=== PATIENT | female | born 1950 | race Caucasian/White ===

== ENCOUNTER 2016-10-30 01:18 | Day surgery (SDC) | payer MEDICARE, OTHER ==
[~2016-10-30] VITALS: Ht 170.2 cm; Wt 93.0 kg
[~2016-10-30 01:18] MED LIST: CAR180CD PO; MAGN250T29 PO; MULT-1018 PO; RIVA20TA PO; VIT1TABL83 PO
[2016-10-30] MEDS ORDERED: Propofol 10,000 mCg/mL 20 mL Inj ONE (01:19)
[2016-10-30] MEDS ORDERED: Sodium Biphos-Phos 133 mL Enema RECTAL PRN (06:00)
[2016-10-30] MEDS ORDERED: Sodium Chloride LOK Flush 10 mL Syringe IV PRN (06:00)
[2016-10-30] MEDS ORDERED: fentaNYL-PF 50 mCg/mL 2 mL Inj IVPUSH PRN (06:00)
[2016-10-30] MEDS ORDERED: CHOL500051 PO (14:03)
[2016-10-30] MEDS: 0.9% Sodium Chloride 1,000 ML IV SCH ×2 (14:11→15:58)
[2016-10-30 14:13] VITALS: BP 137/75; PULSE 60; RESP 16; O2SAT 98
[2016-10-30 16:13] VITALS: BP 107/59; PULSE 63; RESP 16; O2SAT 95
--- NOTE | 2016-10-30 16:16 | PCM.HPANE ---
Patient Data Date of Service: October 30, 2016 ([id number]) Surgeon Admitting Provider: Attending Provider:Salinas Lorenzo MD Primary Care Physician:Dania Rivera MD Other Provider: Reason for Visit Rectal Bleeding Ht/WT & BMI Height (Feet): 5 Height (Inches): 7 Weight (Kilograms): 92.99 Body Mass Index 32.00 Allergies Coded Allergies: Sulfa (Sulfonamide Antibiotics) (Verified Allergy, Severe, HIVES, MOUTH SWELLS SHUT, 10/29/16) aspirin (Verified Allergy, Severe, Hives, 10/29/16) codeine (Verified Allergy, Severe, HIVES, SWELLING IN JOINTS AND LIPS, ) metronidazole (Verified Allergy, Severe, Rash, 10/29/16) lidocaine (Verified Allergy, Intermediate, SWELLING/ITCHING, 10/30/16) Past Anesthesia History Anesthesia History: Denies:: Abnormal Airway, Anesthesia Reactions, Difficult Intubation, Fam Anesthesia Reaction, Fam Malignant Hypertherm, Malignant Hyperthermia Diabetes History Hx Diabetes?: No MRSA MRSA: No Medications Blood Thinner: Xarelto Last Dose Blood Thinner: October 25, 2016 Reported Medications Cholecalciferol (Vitamin D3) (Vitamin D)5,000 Unit Capsule5,000 Unit PO 10/30/16 Rivaroxaban (Xarelto)20 Mg Fjpuxy47 Mg PO DAILY 10/29/16 Vit B Comp/C/FA/Iron/Vit E (Vitamin B Complex Tablet)1 Each Tablet1 Each PO DAILY 10/29/16 Multivitamin (Multi Vitamin Daily)1 Each Tablet1 Each PO DAILY 30 Days Ref 0 10/29/16 Magnesium Oxide (Magnesium)250 Mg Wkjztj193 Mg PO DAILY 10/29/16 Diltiazem-Expunged Drug, Do Not Renew! (Diltiazem CD-Expunged Drug, Do Not Renew !)180 Mg Veslmva719 Mg PO DAILY #30 CAP 24 HOUR DOSAGE FORM 05/18/12 Discontinued Reported Medications Ranitidine Hcl (Zantac)300 Mg Xlbsfy063 Mg PO BID 12/11/12 Dabigatran-Expunged Drug, Do Not Renew! (Pradaxa-Expunged Drug, Do Not Renew!) 150 Mg Febmdje482 Mg PO BID #60 CAP 05/17/12 Pantoprazole-Expunged Drug, Do Not Renew! (Protonix-Expunged Drug, Do Not Renew! )40 Mg Tablet.dr40 Mg PO 0730 #30 TAB 40 MG 05/17/12 Temazepam-Expunged Drug, Do Not Renew! 15 Mg Mhavzrh89 Mg PO 05/17/12 History History of ENT Problems?: No HEENT History: Denies:: Abnormal Airway Difficult Intubation Dysphagia Hearing Problem Denture Type: None Teeth Condition: Within Normal Limits Hx of Heart Problems?: Yes Cardiovascular History: Positive for:: Atrial Fibrillation Hypertension Irregular Heartbeat (afib) Denies:: AICD Cardiac Surgery Chest Pain Congestive Heart Failure Edema Heart Murmur Pacemaker Thrombophlebitis Valvular Heart Disease Hx of Respiratory Problem?: Yes Respiratory History: Positive for:: Dyspnea (From anxiety associated w/ CP) Denies:: Asthma COPD Chest Surgery Cough Emphysema Hemoptysis Pneumonia Tuberculosis Other Resp Pertinent History: SOB WITH EXCERSION Hx Neurologic Problems?: Yes Neurological History: Positive for:: Headaches (r/t medications) Denies:: Alzheimer's Disease CVA Dementia Dizziness Parkinson's Disease Seizures Hx of GI Problems?: Yes Hx of Problems?: Yes Genitourinary History: Positive for:: Urinary Tract Infection Denies:: HX of Hemodialysis Kidney Stones HX of Peritoneal Dialysis: No Female Hx: Positive for:: Problems with Breasts? (Benign breast lump in 1982) Denies:: Currently Endometriosis Pelvic Inflammatory Hx Musculoskeletal Problems?: No Musculoskeletal History: Denies:: Back Injury Fibromyalgia Joint Replacement Musculoskeletal Trauma Hx of Psycho/Social Problems?: No Psycho Social History: Denies:: Anxiety Bipolar Disorder Hx Depression Suicide Attempt Hx Surgeries?: Yes (TONSILLS,GALLBLADDER,MELANOMA) Hx Any Other Health Problems?: Yes Other History: Positive for:: Cancer (Malignant Melanoma x2) Hospitalization (Tonsilectomy , ) Denies:: Endocrine Disease Thyroid Disease History Blood Transfusions: Denies:: Blood Transfuse Reaction Blood Transfusions Hx Diabetes: No Hx Alcohol Use: Yes (1-2 DRINKS PER WEEK AT MOST)Hx Substance Use: NoHave You Smoked inLast 12 mo: No Stop/Bang Treated for Sleep Apnea?: Yes Do You Have a CPAP Machine?: Yes Risk Assessment Category Category 1A: Patient has history of documented sleep apnea, and HAS NOT received any narcotic, sedative or anesthesia administration during this stay. Category 1B: Patient has history of documented sleep apnea, and HAS received any narcotic , sedative or anesthesia administration during this stay Category 2: Patient has SUSPECTED Obstructive Sleep Apnea, and HAS received any narcotic , sedative or anesthesia administration during this stay. Category 3: Patient has SUSPECTED Obstructive Sleep Apnea and HAS NOT received narcotic, sedative or anesthesia administration during this stay. Category 4: Outpatient in Procedural Areas with known sleep apnea or who screen positive for High Risk via the STOP/BANG questionnaire. Exam Exam Vital Signs Vital Signs Date Time Temp Pulse Resp B/P Pulse Ox O2 Delivery O2 Flow Rate FiO2 10/30/16 16:13 63 16 107/59 95 Room Air 10/30/16 14:13 60 16 137/75 98 Room Air General Appearance: Mild Distress HEENT/AIRWAY: Other (unable to assess due to sedation) Lungs: Clear to Auscultation Heart: Exam Unremarkable Meds/Labs/Diagnostics Admission Meds Current Medications Sodium Chloride (Normal Saline) 1,000 ml @ 10 mls/hr Q24H IV Last administered on 10/30/16t 15:58; Start 10/30/16 at 06:00 Plan Impression Patient chart reviewed, patient interviewed and anesthestic plan with risks, benefits, and alternatives discussed, and informed consent obtained. ASA Physical Status: ASA2 Mod Systemic Disease Anesthetic Plan: MAC Bene/Risks/Altern/Consents: No (patient sedated) HP Complete Prior to Induction: No (rescue anesthetic) Baljeet Caldera MD October 30, 2016 16:15
--- NOTE | 2016-10-30 16:16 | PCM.ANEP1 ---
Post Anesthesia Phase 1 PACU Phase 1 Assessment Date of Service: October 30, 2016 ([id number]) Vital Signs Vital Signs Date Time Temp Pulse Resp B/P Pulse Ox O2 Delivery O2 Flow Rate FiO2 10/30/16 16:13 63 16 107/59 95 Room Air 10/30/16 14:13 60 16 137/75 98 Room Air Anesthetic Administered: MAC Level of Alertness: Sleepy, easy to arouse Pain: No Nausea or Vomiting: No Oxygen Delivery: Room Air Lungs: Clear to Auscultation Dermatome Level: Full Sensation Complications: No Baljeet Caldera MD October 30, 2016 16:16
[2016-10-30 16:21] VITALS: BP 115/73; PULSE 74; RESP 16; O2SAT 97
[2016-10-30 16:29] VITALS: BP 109/74; PULSE 64; RESP 16; O2SAT 97
--- NOTE | 2016-10-30 23:42 | ENDO ---
[address] [address] ENDOSCOPY PROCEDURE PATIENT: PALLAVI FLOWER : 1950 MR#: [id number] ADMIT: 10/30/2016 JOB ID: [id number] PRE-PROCEDURE DIAGNOSIS: Rectal bleeding. POSTPROCEDURE DIAGNOSES: 1. Rectal bleeding. 2. Minimal sigmoid diverticulosis. 3. Hemorrhoids. PROCEDURE: Colonoscopy. ENDOSCOPIST: Salinas Lorenzo MD MEDICATIONS: Versed 6 mg, Fentanyl 125 mcg, followed by propofol assisted anesthesia. INDICATIONS: The patient is a 66-year-old woman, who last underwent colonoscopy in 2012. 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 She was recommended to have repeat colonoscopy in five years. She then came back to [facility], because she had developed some blood on the toilet paper after bowel movements and had a known external hemorrhoid. She also had developed some cramping left upper quadrant and left lower quadrant pain, which was new. After discussion of risks and benefits, she agreed to proceed with colonoscopy. FINDINGS: No masses or mucosal abnormalities were identified. There were some minimal left-sided diverticula and mild to moderate internal hemorrhoids on retroflexion. DESCRIPTION OF PROCEDURE: Procedural sedation was achieved. After digital rectal exam, the PCF-H190 colonoscope was passed under visualization. In the transverse colon, she was markedly uncomfortable and had received 6 mg of Versed and 125 mcg of fentanyl. It was clear that we were not going to achieve complete intubation of the cecum without propofol assisted anesthesia, so Dr. Caldera assisted for the remainder of the procedure. See his dictated note for the sedation details. Once she was adequately sedated, the cecum was reached, and the terminal ileum was briefly intubated. Photo documentation was obtained from the terminal ileum, cecum, and ileocecal valve. The scope was then withdrawn and carefully retroflexed in the rectum. There were some minimal left-sided diverticula. There were some small to moderate internal hemorrhoids on retroflexion. No other mucosal abnormalities were identified. The scope was withdrawn and the procedure terminated. She tolerated the entire procedure well. RECOMMENDATIONS: For screening of the colon, next colonoscopy can be in five years. She can follow up with Dr. Lorenzo in surgery clinic to discuss hemorrhoid management as the likely source of her rectal bleeding given no other objective findings today. MALGORZATA
== END 2016-10-30 23:59 | disposition home or self-care (01) ==
LOC: END 01:18
PROVIDERS: ATTEND Student in an Organized Health Care Education/Training Program
DX: K64.8 Other hemorrhoids (principal); K57.30 Diverticulosis of large intestine without perforation or abscess without bleeding; K62.5 Hemorrhage of anus and rectum; R19.4 Change in bowel habit; K64.4 Residual hemorrhoidal skin tags; I10 Essential (primary) hypertension; I48.91 Unspecified atrial fibrillation; E78.5 Hyperlipidemia, unspecified; G25.81 Restless legs syndrome; G47.33 Obstructive sleep apnea (adult) (pediatric); K21.9 Gastro-esophageal reflux disease without esophagitis; Z85.820 Personal history of malignant melanoma of skin; Z87.891 Personal history of nicotine dependence; Z79.01 Long term (current) use of anticoagulants; Z86.010 Personal history of colon polyps
CPT/HCPCS: 45378; G0500; J2250; J3010; J7030